=== PATIENT | male | born 1975 | race Caucasian/White ===

== ENCOUNTER 2018-11-29 12:58 | Observation (INO) ==
[2018-11-29 13:40] LABS: Basophils % 0.2 %; Eosinophils % 0.1 %; Hematocrit 45.6 % (37.5-50.1); Hemoglobin 15.8 g/dL (12.9-16.9); Immature Granulocytes % 0.2 % (0-4); Lymphocytes # 1.7 K/mcL (0.6-4.6); Lymphocytes % 12.9 %; Mean Corpuscular HGB Conc 34.6 g/dL (31.6-35.5); Mean Corpuscular Hemoglobin 32.6 pg (28.0-33.3); Mean Corpuscular Volume 94.2 fL (83.0-100.0); Mean Platelet Volume 10.8 fL (9.4-12.4); Monocytes # 0.4 K/mcL (0.0-1.3); Monocytes % 3.3 %; Neutrophils # 10.7 K/mcL (1.6-8.9); Platelet Count 326 K/mcL (140-400); Red Blood Count 4.84 M/mcL (4.19-5.50); Red Cell Distribution Width 12.9 % (11.5-14.5); Segmented Neutrophils % 83.3 %; White Blood Count 12.9 K/mcL (4.3-11.1)
[2018-11-29 14:03] LABS: Alanine Aminotransferase 16 Units/L (7-52); Albumin 4.2 g/dL (3.5-5.7); Albumin/Globulin Ratio 1.7 (1.1-2.2); Alkaline Phosphatase 60 Units/L (34-104); Amylase 72 Units/L (29-103); Aspartate Amino Transferase 17 Units/L (13-39); BUN/Creatinine Ratio 30 (6-26); Bilirubin,Direct 0.1 mg/dL (0.0-0.2); Bilirubin,Indirect 0.8 mg/dL (0.0-1.2); Bilirubin,Total 0.9 mg/dL (0.3-1.0); Blood Urea Nitrogen 20 mg/dL (6-20); Calcium 9.6 mg/dL (8.6-10.3); Carbon Dioxide 31 mEq/L (23-29); Chloride 99 mEq/L (98-107); Globulin 2.5 g/dL (2.4-3.5); Glucose 121 mg/dL (70-105); Lipase 24 Units/L (11-82); Osmolality,Calculated 292 (280-300); Potassium 4.1 mEq/L (3.5-5.1); Sodium 139 mEq/L (136-145); Total Protein 6.7 g/dL (6.4-8.9); eGFR For African Americans > 60 (> 60); eGFR For Non-African Americans > 60 (> 60)
[2018-11-29] MEDS ORDERED: Ketorolac 15 MG/ML VIAL IVP ONE (14:48)
[2018-11-29] MEDS ORDERED: Ondansetron ODT 4 MG TAB.RAPDIS SL ONE (14:48)
--- NOTE | 2018-11-29 15:04 | Emergency Department Note ---
Disposition Clinical Impression: Hematemesis, Abnormal CT scan, Abnormal urinalysis, UGI bleed Abdominal pain Qualifiers: Abdominal location: generalized Qualified Code(s): R10.84 - Generalized abdominal pain Disposition: Admitted As Inpatient Referrals: NONE,PCP [Primary Care Provider] - Forms: ED Satisfaction Letter, Work/School Release Time of Disposition: 17:48 General Adult HPI - General Chief complaint: ED Abdominal Pain Stated complaint: Flank Pain/Possible kidney stone Time Seen by Provider: 11/29/18 14:05 Source: patient Limitations: no limitations Nursing Notes Reviewed: Yes Vital Signs Reviewed: Yes - History of Present Illness HPI Narrative: Mr. Buckner is a 43 yo M with PMH of tobacco use, presenting emergency department with 6 day history of LUQ pain radiating around the left flank. Associated symptoms include chills, nausea, vomiting with hematemesis, constipation, and burning with urination. His pain is worse with movement. Pain improves when standing. Reports the hematemesis has been a very small amount of bleeding. He has not been eating or drinking well. He had a bowel movement today, but states it was very small and hard. He has a history of drinking 12-14 energy drinks per day, but has not been able to since his pain started. He denies fevers, vision changes, lightheadedness, chest pain, dyspnea, diarrhea, hematochezia, melena, hematuria, or joint pain or swelling. Pain Scale: 10 - Related Data Home Medications Medication Instructions Recorded Confirmed Ibuprofen [Motrin] 200 mg PO Q4HR 03/13/18 03/13/18 Previous Rx's Medication Instructions Recorded Cyclobenzaprine [Flexeril] 10 mg PO HS PRN #10 tablet 03/13/18 Lidocaine Patch [Lidoderm 5% patch] 1 each TP DAILY #10 adh..patch 03/19/18 Acetaminophen [Tylenol] 500 mg PO Q6HR #16 tablet 09/17/18 Cyclobenzaprine [Flexeril] 10 mg PO BID #6 tablet 09/17/18 Ibuprofen [Motrin] 600 mg PO Q6HR PRN #16 tab 09/17/18 Lidocaine Patch [Lidoderm 5% patch] 1 each TP DAILY #4 adh..patch 09/17/18 Ibuprofen [Motrin] 600 mg PO Q8HR PRN #20 tab 11/23/18 Allergies Allergy/AdvReac Type Severity Reaction Status Date / Time Penicillins Allergy Swelling Verified 09/17/18 07:14 of Lip/Tongue/Throat tramadol [From Ultram] AdvReac Chest Pain Verified 09/17/18 07:14 Review of Systems: Admits to LUQ pain, chills, nausea, vomiting with mild amount of hematemesis, constipation, and burning with urination. Denies fevers, vision changes, lightheadedness, chest pain, dyspnea, diarrhea, hematochezia, melena, hematuria, or joint pain or swelling. Past Medical History - Past Medical History Medical history: Reports: no medical history Surgical history: Reports: non-contributory Psychiatric history: Reports: bipolar, depression - Social History Smoking Status: Current every day smoker Smokeless Tobacco Status: No Alcohol use: Reports: none Drug use: Reports: none Physical Exam GEN: No acute distress, A&O3 HEAD: Atraumatic, normocephalic EYES: Pupils symmetric, sclera white, conjunctiva pink MOUTH: no lesions or petechiae HEART: RRR, normal S1 and S2, no murmurs LUNGS: Clear to auscultation bilaterally, no wheezes, rhonchi, or crackles ABD: Soft, moderate LUQ/LLQ/suprapubic tenderness, nondistended, + guarding, no rigidity, + left CVA tenderness EXT: No edema noted, pulses 2/4 NEURO: No focal deficits, strength equal and symmetric in all extremities, cooperative with exam - General Limitations: no limitations General appearance: alert - Head Head exam: atraumatic, normocephalic, normal inspection - Eye Eye exam: Present: normal appearance, PERRL, EOMI - ENT ENT exam: normal exam, normal oropharynx, mucous membranes moist - Neck Neck exam: Present: normal inspection, full ROM, trachea midline - Chest Chest inspection: Present: normal inspection, symmetric chest wall rise. Absent: tenderness - Respiratory Respiratory exam: Present: normal lung sounds bilaterally. Absent: respiratory distress, prolonged expiratory phase - Cardiovascular Cardiovascular exam: Present: regular rate, normal rhythm, normal heart sounds - Abdominal Exam Abdominal exam: Present: soft, tenderness, normal bowel sounds. Absent: distention, guarding, rebound, rigidity, trauma Abdominal tenderness: Present: RLQ, LLQ, moderate - Extremities Exam Extremities exam: Present: normal inspection, full ROM, normal capillary refill. Absent: tenderness, pedal edema, joint swelling, calf tenderness - Expanded Lower Extremity Exam Neurovascular/Tendon exam: Present: normal capillary refill. Absent: motor deficit, sensory deficit, tendon deficit, extremity cold to touch, pallor - Back Exam Back exam: Present: normal inspection, full ROM, CVA tenderness (L), paraspinal tenderness. Absent: tenderness, CVA tenderness (R), vertebral tenderness - Neurological Exam Neurological exam: Present: alert, oriented X3, CN II-XII intact. Absent: motor sensory deficit - Psychiatric Psychiatric exam: Present: normal affect, normal mood - Skin Skin exam: Present: warm, dry, intact, normal color Course Vital Signs Temperature 98.2 F 11/29/18 13:03 Pulse Rate 69 11/29/18 13:03 Respiratory Rate 18 11/29/18 13:03 Blood Pressure 132/86 11/29/18 13:03 O2 Sat by Pulse Oximetry 100 11/29/18 13:03 Temperature 98.2 F 11/29/18 13:03 Pulse Rate 80 11/29/18 16:38 Respiratory Rate 16 11/29/18 16:38 Blood Pressure 138/86 11/29/18 16:38 O2 Sat by Pulse Oximetry 100 11/29/18 16:38 Oxygen Delivery Oxygen Delivery Room Air Medical Decision Making - MDM Narrative Medical decision making narrative: Nontoxic, well-appearing, afebrile 43-year-old male with left-sided abdominal pain and hematemesis. Patient was given toradol, dulaudid, zofran, and pantoprazole. Patient does have any hx of liver dysfunction. Etiology of his pain may be related to PUD. Also a consideration if renal stone. Labs show mild leukocytosis of 12.9. Urinalysis is turbid, but without any nitrates, leukoesterase, or blood. Otherwise laboratory workup is unremarkable. CT abdomen and pelvis for further evaluation is pending at this time. Disposition is pending at this time. Further care will be conducted by attending Dr. Miner, please see his documentation for final treatment and disposition. *Dr. Miner: The patient was initially evaluated in the emergency department by the resident who noted a concerning history of flank pain and potential renal colic then ordered Toradol. The patient initially gave a confusing history regarding the nature of his emesis and pain. On review of the patient's triage note, there was a description of vomiting of blood, then the patient denied. When I questmarley tova the patient specifically he reported he had bright red blood per vomitus. He is not anticoagulated. He denies any black or bloody stool. He reports he used to drink significant amounts of alcohol in the past. There is no history of abdominal trauma. His clinical examination reveals lower abdominal pain and back pain to palpation. He states he has chronic back pain and has had have injections for chronic back problems. There is no evidence of acute neuropathy or complaints of acute weakness or numbness in the legs. There is no history of abdominal aortic aneurysm. The patient denies chest pain shortness of breath or injury. No history of syncope. Laboratory studies reviewed, urinalysis noted to be abnormal. CT scan demonstrates changes suggestive of gastric abnormality. Based on the patient's reported bloody emesis, elevated BUN, and CT findings suspicious for gastric pathology, Protonix was ordered IV as well as a Protonix drip. The patient was treated with Dilaudid and Zofran which seemed to help, he requested a repeat dose which was ordered. The patient declines rectal examination. He denies blackened stool. The patient appears to have an element of gastritis with upper GI bleeding. Based on reported hematemesis, probable upper GI bleed, and CT findings suggestive of same, I thought it would be appropriate to admit the patient to the hospital. I discussed the case with the hospitalist on-call who has accepted the patient to their care. A second CBC lal s been ordered. - Lab Data Lab results reviewed: Yes I reviewed the patient's lab results. Result diagrams: 11/29/18 13:21 11/29/18 13:21 Lab Results 11/29/18 11/29/18 11/29/18 Range/Units 13:21 13:21 13:21 WBC 12.9 H (4.3-11.1) K/mcL RBC 4.84 (4.19-5.50) M/mcL Hgb 15.8 (12.9-16.9) g/dL Hct 45.6 (37.5-50.1) % MCV 94.2 (83.0-100.0) fL MCH 32.6 (28.0-33.3) pg MCHC 34.6 (31.6-35.5) g/dL RDW 12.9 (11.5-14.5) % Plt Count 326 (140-400) K/mcL MPV 10.8 (9.4-12.4) fL Immature Gran % 0.2 (0-4) % Seg Neutrophils % 83.3 % Lymphocytes % 12.9 % Monocytes % 3.3 % Eosinophils % 0.1 % Basophils % 0.2 % Neutrophils # 10.7 H (1.6-8.9) K/mcL Lymphocytes # 1.7 (0.6-4.6) K/mcL Monocytes # 0.4 (0.0-1.3) K/mcL Eosinophils # 0.0 (0.0-0.6) K/mcL Basophils # 0.0 (0.0-0.2) K/mcL PT 11.1 (9.4-12.1) Seconds INR 1.0 APTT 34.5 (26.0-36.0) Seconds Sodium 139 (136-145) mEq/L Potassium 4.1 (3.5-5.1) mEq/L Chloride 99 (98-107) mEq/L Carbon Dioxide 31 H (23-29) mEq/L BUN 20 (6-20) mg/dL Creatinine 0.67 L (0.70-1.30) mg/dL Est GFR ( Amer) > 60 (> 60) Est GFR (Non-Af Amer) > 60 (> 60) BUN/Creatinine Ratio 30 H (6-26) Glucose 121 H (70-105) mg/dL Calculated Osmolality 292 (280-300) Calcium 9.6 (8.6-10.3) mg/dL Total Bilirubin 0.9 (0.3-1.0) mg/dL Direct Bilirubin 0.1 (0.0-0.2) mg/dL Indirect Bilirubin 0.8 (0.0-1.2) mg/dL AST 17 (13-39) Units/L ALT 16 (7-52) Units/L Alkaline Phosphatase 60 (34-104) Units/L Serum Total Protein 6.7 (6.4-8.9) g/dL Albumin 4.2 (3.5-5.7) g/dL Globulin 2.5 (2.4-3.5) g/dL Albumin/Globulin Ratio 1.7 (1.1-2.2) Amylase 72 (29-103) Units/L Lipase 24 (11-82) Units/L Urine Color (Yellow) Urine Clarity (Clear) Urine pH (5.0-8.0) pH Units Ur Specific [place] (1.010-1.025) Urine Protein (Neg-Trace) mg/dL Urine Glucose (UA) (Normal) mg/dL Urine Ketones (Negative) mg/dL Urine Blood (Negative) Urine Nitrite (Negative) Urine Bilirubin (Negative) Urine Urobilinogen (Normal) mg/dL Ur Leukocyte Esterase (Negative) Urine Microscopic RBC (0-3) per hpf Urine Microscopic WBC (0-3) per hpf Ur Squamous Epith Cells (None-Few) per lpf Amorphous Sediment (Few) Urine Bacteria (None-Few) per hpf Hyaline Casts (None-Few) per lpf Ur Culture Indicated? (NO) 11/29/18 Range/Units 15:46 WBC (4.3-11.1) K/mcL RBC (4.19-5.50) M/mcL Hgb (12.9-16.9) g/dL Hct (37.5-50.1) % MCV (83.0-100.0) fL MCH (28.0-33.3) pg MCHC (31.6-35.5) g/dL RDW (11.5-14.5) % Plt Count (140-400) K/mcL MPV (9.4-12.4) fL Immature Gran % (0-4) % Seg Neutrophils % % Lymphocytes % % Monocytes % % Eosinophils % % Basophils % % Neutrophils # (1.6-8.9) K/mcL Lymphocytes # (0.6-4.6) K/mcL Monocytes # (0.0-1.3) K/mcL Eosinophils # (0.0-0.6) K/mcL Basophils # (0.0-0.2) K/mcL PT (9.4-12.1) Seconds INR APTT (26.0-36.0) Seconds Sodium (136-145) mEq/L Potassium (3.5-5.1) mEq/L Chloride (98-107) mEq/L Carbon Dioxide (23-29) mEq/L BUN (6-20) mg/dL Creatinine (0.70-1.30) mg/dL Est GFR ( Amer) (> 60) Est GFR (Non-Af Amer) (> 60) BUN/Creatinine Ratio (6-26) Glucose (70-105) mg/dL Calculated Osmolality (280-300) Calcium (8.6-10.3) mg/dL Total Bilirubin (0.3-1.0) mg/dL Direct Bilirubin (0.0-0.2) mg/dL Indirect Bilirubin (0.0-1.2) mg/dL AST (13-39) Units/L ALT (7-52) Units/L Alkaline Phosphatase (34-104) Units/L Serum Total Protein (6.4-8.9) g/dL Albumin (3.5-5.7) g/dL Globulin (2.4-3.5) g/dL Albumin/Globulin Ratio (1.1-2.2) Amylase (29-103) Units/L Lipase (11-82) Units/L Urine Color Yellow (Yellow) Urine Clarity Turbid A (Clear) Urine pH 8.5 H (5.0-8.0) pH Units Ur Specific [place] 1.025 (1.010-1.025) Urine Protein 30 H (Neg-Trace) mg/dL Urine Glucose (UA) Normal (Normal) mg/dL Urine Ketones Negative (Negative) mg/dL Urine Blood Negative (Negative) Urine Nitrite Negative (Negative) Urine Bilirubin Negative (Negative) Urine Urobilinogen Normal (Normal) mg/dL Ur Leukocyte Esterase Negative (Negative) Urine Microscopic RBC 0-3 (0-3) per hpf Urine Microscopic WBC 0-3 (0-3) per hpf Ur Squamous Epith Cells Many H (None-Few) per lpf Amorphous Sediment Few (Few) Urine Bacteria Moderate H (None-Few) per hpf Hyaline Casts None Seen (None-Few) per lpf Ur Culture Indicated? YES A (NO)
[2018-11-29 15:22] LABS: Activated Partial Thrombo Time 34.5 Seconds (26.0-36.0)
[2018-11-29 15:25] LABS: Prothrombin Time 11.1 Seconds (9.4-12.1)
[2018-11-29] MEDS ORDERED: Pantoprazole 80 MG in 0.9 % Sodium Chloride 50 ML IVPB ONE (16:02)
[2018-11-29] MEDS ORDERED: Ondansetron 4 MG/2 ML VIAL IVP ONE ×2 (16:03→19:16)
[2018-11-29] MEDS ORDERED: *HR* HYDROmorphone (PF) 1 MG/ML SYRINGE IVP ONE ×2 (16:03→19:16)
[2018-11-29 16:10] LABS: Bilirubin,Urine Negative (Negative); Blood,Urine Negative (Negative); Clarity,Urine Turbid (Clear); Color,Urine Yellow (Yellow); Glucose,Urine (UA) Normal (Normal); Ketones,Urine Negative (Negative); Leukocyte Esterase,Urine Negative (Negative); Nitrite,Urine Negative (Negative); PH,Urine 8.5 pH Units (5.0-8.0); Protein,Urine 30 mg/dL (Neg-Trace); Specific Gravity,Urine 1.025 (1.010-1.025); Urobilinogen,Urine Normal (Normal)
[2018-11-29 16:23] LABS: Hyaline Casts,Urine None Seen per lpf (None-Few); RBC,Urine 0-3 per hpf (0-3); Squamous Epithelial Cell,Urine Many per lpf (None-Few); WBC,Urine 0-3 per hpf (0-3)
[2018-11-29] MEDS ORDERED: Isovue-370 500 ML BOTTLE IVP ONE (16:38)
[2018-11-29 16:43] LABS: Amorphous Sediment,Urine Few (Few); Bacteria,Urine Moderate per hpf (None-Few)
[2018-11-29] MEDS ORDERED: Naloxone 0.4 MG/ML INJ IVP PRN (22:31)
[2018-11-29] MEDS ORDERED: Ondansetron 4 MG/2 ML VIAL IVP PRN (22:31)
[2018-11-29] MEDS: Pantoprazole 40 MG in 0.9 % Sodium Chloride Mini Bag 100 ML IVC SCH (22:47)
--- NOTE | 2018-11-29 22:55 | Internal Med History&Physical ---
Date of Encounter: 11/29/18 Time of Encounter: 22:00 Internal Medicine - H&P: HPI Chief complaint: Hematemesis Admitted From: Emergency Dept Plans for Post Hospital Care: Home History of present illness: Mr. Buckner is a 43 year old male Patient presented to the emergency department after experiencing several days of left upper quadrant abdominal pain as well as hematemesis. He states that he is unable to keep anything down, and when he would eat he would vomit it back up. He has noted blood in his vomit. He states that he also has a heavy energy drink usage, drinking 16 sixteen ounce energy drinks daily which he has done for over 2 years. He quit drinking these around Wednesday of last week after he developed the vomiting. He has never had pain like this before. Emergency department patient initial vital signs were within normal limits CBC notable for white count of 12.9, hemoglobin of 15.8 and platelets 326. BMP unremarkable aside from mildly elevated glucose of 121. Urinalysis: Urine pH 8.5, 30 protein with moderate urine bacteria. CT abdomen and pelvis IMPRESSION: Prominence of the gastric mucosal folds and wall thickening especially of the fundus, body of the stomach that may represent gastritis. Recommend endoscopic correlation given symptoms of abdominal pain and hematemesis. No bowel obstruction. Patient was given IV pain medicine, IV Zofran and started on a pantoprazole IV drip. He is admitted to the hospital for further management. Upon my evaluation, patient is threatening to leave the hospital AGAINST MEDICAL ADVICE. He states that he is hungry and is calling looking for a ride home. I discussed with him the risks of leaving, and patient stated that he would like something to eat and if he cannot eat he wants something to help with his pain. I stated that we would give him something to manage his pain however I would not give him anything to eat or drink. Patient agreed to stay if we can get his pain under control. He declines any kind of rectal examination and would not agree to colonoscopy if it were required. I informed him that he may require an upper endoscopy, and GI consult in the morning. Patient also confirmed his history of his heavy energy drink use. He is also a heavy smoker. He denies IV drug use but smokes marijuana. He has history of alcohol use in the past but has not had any alcohol to drink in over 20 years. He states that he would not want to be resuscitated nor intubated if required. He denies suicidal ideation. Denies significant past family history, but did not have much details to provide. Past Med Surg Social Fam HX - Past Medical History Medical history: no medical history Additional medical history: back pain Psychiatric history: bipolar, depression - Past Surgical History Surgical History: non-contributory - Social History Smoking Status: Current every day smoker Smokeless Tobacco Status: No Alcohol use: none Drug use: none Internal Medicine - H&P: Meds Ibuprofen [Motrin] 600 mg PO Q8HR PRN #20 tab 11/23/18 [Rx] Allergy/AdvReac Type Severity Reaction Status Date / Time Penicillins Allergy Swelling Verified 11/29/18 21:41 of Lip/Tongue/Throat tramadol [From Ultram] AdvReac Chest Pain Verified 11/29/18 21:41 All Systems PM: A 10-system review of systems was performed and is negative for pertinent findings except as documented above in the HPI. - Constitutional Vitals: Temp Pulse Resp BP Pulse Ox 98.0 F 64 15 138/91 99 11/29/18 20:48 11/29/18 20:48 11/29/18 20:48 11/29/18 20:48 11/29/18 20:48 General appearance: Present: cooperative, mild distress, A&O X 3, answers questions appropriately. Absent: pleasant Exam: Patient initially very unpleasant, requesting to leave. Discussed with him that we would work to control his pain, and he agreed to stay. - Head Head exam: Present: normal inspection - Eye Eye exam: Present: EOMI, normal appearance - Respiratory Respiratory exam: Present: decreased breath sounds, CTAB. Absent: rales, respiratory distress, rhonchi, wheezes - Cardiovascular Cardiovascular exam: Present: RRR. Absent: diastolic murmur, systolic murmur - GI/Abdominal GI/Abdominal exam: Present: guarding, normal bowel sounds, tenderness Additional comments: Tender in LUQ with palpation - Extremities Exam Extremities exam: Present: warm, radial pulses palpable and symmetrical. Absent: calf tenderness, pedal edema, tenderness - Neurological Exam Neurological exam: Present: no focal deficits, strengths equal and symetr throughout. Absent: motor sensory deficit, facial droop, speech deficit - Skin Skin exam: Present: dry, normal color, warm Internal Med - H&P Results - Labs CBC & Chem 7: 11/29/18 13:21 11/29/18 13:21 Labs: Short CBC 11/29/18 Range/Units 13:21 WBC 12.9 H (4.3-11.1) K/mcL Hgb 15.8 (12.9-16.9) g/dL Hct 45.6 (37.5-50.1) % Plt Count 326 (140-400) K/mcL Neutrophils # 10.7 H (1.6-8.9) K/mcL BMP 11/29/18 13:21 Sodium 139 Potassium 4.1 Chloride 99 Carbon Dioxide 31 H BUN 20 Creatinine 0.67 L Glucose 121 H Calcium 9.6 Liver Function 11/29/18 Range/Units 13:21 Total Bilirubin 0.9 (0.3-1.0) mg/dL Direct Bilirubin 0.1 (0.0-0.2) mg/dL AST 17 (13-39) Units/L ALT 16 (7-52) Units/L Alkaline Phosphatase 60 (34-104) Units/L Albumin 4.2 (3.5-5.7) g/dL Urine 11/29/18 Range/Units 15:46 Urine Color Yellow (Yellow) Urine Clarity Turbid A (Clear) Urine pH 8.5 H (5.0-8.0) pH Units Ur Specific [place] 1.025 (1.010-1.025) Urine Protein 30 H (Neg-Trace) mg/dL Urine Glucose (UA) Normal (Normal) mg/dL - Impressions ITS Impressions Abdomen/Pelvis CT 11/29/18 16:38 IMPRESSION: Prominence of the gastric mucosal folds and wall thickening especially of the fundus, body of the stomach that may represent gastritis. Recommend endoscopic correlation given symptoms of abdominal pain and hematemesis. No bowel obstruction. D/ : / 11/29/2018 19:21:16 Marcelo Loyd MD / [place] Interpreting Provider: Marcelo Loyd MD - Assessment and Plan (1) Hematemesis Current Visit: Yes Status: Acute Assessment and plan: Patient has had bloody vomitus since Wednesday. Refuses rectal exam. Has not had vomiting or bowel movement since his arrival to the ER. Patient also admits to taking 3 ibuprofens daily as well which could play a role in his gastritis. Check stool occult blood GI consult in the morning Nothing by mouth IV Protonix Continue to monitor Qualifiers: Nausea presence: with nausea Qualified Code(s): K92.0 - Hematemesis (2) Abdominal pain Current Visit: Yes Status: Acute Assessment and plan: CT shows likely gastritis in the body of the stomach as well as wall thickening in the fundus, likely source of his hematemesis. Nothing by mouth IV Protonix GI consult in the morning Pain management as needed Qualifiers: Abdominal location: left upper quadrant Qualified Code(s): R10.12 - Left upper quadrant pain (3) Use of energy drinks Current Visit: Yes Status: Acute Assessment and plan: Heavy energy drink use, 16 sixteen ounce drinks daily for over 2 years. Patient denies palpitations and tremors. Continue to monitor Cardiac telemetry (4) Nicotine dependence Current Visit: Yes Status: Acute Assessment and plan: Heavy cigarette use, 2 pack per day. Nicotine patch Qualifiers: Nicotine product type: cigarettes Substance use status: uncomplicated Qualified Code(s): F17.210 - Nicotine dependence, cigarettes, uncomplicated (5) DVT prophylaxis Current Visit: Yes Status: Acute Assessment and plan: SCDs - Time Spent With Patient Total time spent is greater than 50% in coordination of care (as documented) at patient's floor/unit and/or counseling patient: Greater than 35 minutes
[2018-11-29] MEDS: 0.9 % Sodium Chloride 1,000 ML IVC SCH (23:22)
[2018-11-30] MEDS: Pantoprazole 40 MG in 0.9 % Sodium Chloride Mini Bag 100 ML IVC SCH ×4 (03:55→20:50)
[2018-11-30] MEDS: Nicotine 21 MG PATCH.TD24 TD SCH (04:02)
[2018-11-30] MEDS: 0.9 % Sodium Chloride 1,000 ML IVC SCH (06:42)
[2018-11-30] MEDS ORDERED: *HR* Midazolam HCl 2 MG/2 ML VIAL ONE ×2 (07:37→07:38)
[2018-11-30] MEDS ORDERED: Lidocaine -MPF 2% 2 ML VIAL ONE (07:39)
[2018-11-30] MEDS ORDERED: Propofol 500 MG/50 ML INFUS..BTL ONE (07:39)
--- NOTE | 2018-11-30 08:39 | Gastroenterology Consult Note ---
Date of Encounter: 11/30/18 Time of Encounter: 08:30 - Assessment and plan (1) Hematemesis Current Visit: Yes Status: Acute Assessment and plan: Patient with the hematemesis and abdominal pain has been taking NSAIDs for his finger pain. Need an EGD to rule out gastritis peptic ulcer disease. We will continue PPI Qualifiers: Nausea presence: with nausea Qualified Code(s): K92.0 - Hematemesis - Time Spent With Patient Total time spent is greater than 50% in coordination of care (as documented) at patient's floor/unit and/or counseling patient: GI History of Present Illness - Data of Consult Requesting Physician: Krystle Ayala - Consult Narrative History of present illness: Mr. Buckner is a 43 year old male everal days of left upper quadrant abdominal pain as well as hematemesis. He states that he is unable to keep anything down, and when he would eat he would vomit it back up. He has noted blood in his vomit. He states that he also has a heavy energy drink usage, drinking 16 sixteen ounce energy drinks daily which he has done for over 2 years. He quit drinking these around Wednesday of last week after he developed the vomiting. He is also complaining of pain in his finger. Patient has been taking NSAID for his finger pain Past Med Surg Social Fam HX - Past Medical History Medical history: IV drug use Additional medical history: Marijuana Psychiatric history: bipolar, depression, schizophrenia - Past Surgical History Surgical History: non-contributory - Social History Smoking Status: Current every day smoker Smokeless Tobacco Status: No Alcohol use: none Drug use: marijuana - Family History Mother Living Status: Age at : 45 Cause of : cancer Father History Unknown: Yes Living Status: Still Living Review of Systems: GI: as per [facility] GENERAL: denies fever, has some chills EYES: denies yellow discoloration ENT: denies pain with swallowing or difficulty swallowing CARDIO: denies chest pain, palpitations RESP: No Shortness of breath with exertion : denies change in color of urine NEURO: denies any weakness HEME: Denies any bruising MS: Pain in his middle finger. DERM: denies rash or itching PSYCH: history of anxiety or depression and bipolar disorder - Constitutional Vitals: Temp Pulse Resp BP Pulse Ox 97.6 F 55 16 122/78 100 09/04/19 07:13 11/30/18 07:13 11/30/18 07:13 11/30/18 07:13 11/30/18 07:13 Exam: CONSTITUTIONAL:alert, no acute distress.HEAD:normocephalic.EYES:no jaundice.NECK:no obvious swelling.HEART:regular rate and rhythm, no murmurs.LUNGS:bilateral good air entry.ABDOMEN:non distended, soft, non tander, no masses pulpable, no organomegaly.RECTAL EXAM:Deferred.EXTREMITIES:no clubbing, cyanosis or edema. 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 Results - Labs CBC & Chem 7: 11/29/18 13:21 11/29/18 13:21 - ABG ABG results: PT/INR, D-dimer PT 11.1 Seconds (9.4-12.1) 11/29/18 13:21 - Impressions Impressions Abdomen/Pelvis CT 11/29/18 16:38 IMPRESSION: Prominence of the gastric mucosal folds and wall thickening especially of the fundus, body of the stomach that may represent gastritis. Recommend endoscopic correlation given symptoms of abdominal pain and hematemesis. No bowel obstruction. D/ /29/2018 19:21:16 Marcelo Loyd MD / [place] Interpreting Provider: Marcelo Loyd MD Consult Discharge Plan - Plan Referrals: NONE,PCP [Primary Care Provider] -
--- NOTE | 2018-11-30 08:45 | Anesthesia Evaluation PreOp ---
Date of Encounter: 11/30/18 Time of Encounter: 08:44 - Past History Planned Operation: EGD Cardiac History: HTN Pulmonary History: Smoker Other Medical History: Other (UPPER GI BLEED, HEMATEMESIS) Alcohol Use: none Drug use: marijuana Medications and Allergies Ibuprofen [Motrin] 600 mg PO Q8HR PRN #20 tab 11/23/18 [Rx] Allergy/AdvReac Type Severity Reaction Status Date / Time Penicillins Allergy Swelling Verified 11/29/18 21:41 of Lip/Tongue/Throat tramadol [From Ultram] AdvReac Chest Pain Verified 11/29/18 21:41 Anesthesia Results - Labs 11/29/18 13:21 11/29/18 13:21 Anesthesia Exam Vital Signs/O2 Sat, Most Current Temp Pulse Resp BP Pulse Ox 97.6 F 55 16 122/78 100 11/30/18 08:34 11/30/18 08:34 11/30/18 08:34 11/30/18 08:34 11/30/18 08:34 Weight: 70 KG NPO (# of Hours): 8 - HEENT Mallampati: II Teeth: Poor dentition - Cardiac Rhythm: Regular - Pulmonary Breath Sounds: bilateral Clear Anesthesia Assess/Plan ASA Score: 3 Anesthetic Plan: MAC Monitoring Plan: Standard Monitors Recovery Plan: Other
[2018-11-30 09:41] LABS: Hematocrit 38.9 % (37.5-50.1); Mean Corpuscular HGB Conc 33.9 g/dL (31.6-35.5); Mean Corpuscular Hemoglobin 32.9 pg (28.0-33.3); Mean Platelet Volume 11.5 fL (9.4-12.4); Platelet Count 260 K/mcL (140-400); Red Blood Count 4.01 M/mcL (4.19-5.50); Red Cell Distribution Width 13.2 % (11.5-14.5); White Blood Count 7.8 K/mcL (4.3-11.1)
[2018-11-30 09:43] LABS: Hemoglobin 13.2 g/dL (12.9-16.9)
[2018-11-30 13:05] LABS: BUN/Creatinine Ratio 27 (6-26); Blood Urea Nitrogen 19 mg/dL (6-20); Carbon Dioxide 29 mEq/L (23-29); Chloride 105 mEq/L (98-107); Cholesterol 138 mg/dL (< 200); Glucose 122 mg/dL (70-105); HDL Cholesterol 32 mg/dL (40-59); Osmolality,Calculated 290 (280-300); Potassium 3.2 mEq/L (3.5-5.1); Sodium 138 mEq/L (136-145); Triglycerides 78 mg/dL (< 150); eGFR For African Americans > 60 (> 60); eGFR For Non-African Americans > 60 (> 60)
[2018-11-30 13:06] LABS: Chol/HDL Ratio 4.3 (0-4.9); LDL Cholesterol,Calculated 90 mg/dL (0-99)
--- NOTE | 2018-11-30 13:14 | Internal Med Progress Note ---
<Krystle Ayala - Last Filed: 11/30/18 15:44> Hospitalist Progress Note - Encounter Date of Encounter: 11/30/18 - Exam Vitals: Temp Pulse Resp BP Pulse Ox 97.9 F 52 15 113/68 99 11/30/18 14:14 11/30/18 14:14 11/30/18 14:14 11/30/18 14:14 11/30/18 14:14 - Assessment and Plan (1) Abdominal pain Current Visit: Yes Status: Acute (2) Hematemesis Current Visit: Yes Status: Acute (3) DVT prophylaxis Current Visit: Yes Status: Acute (4) Nicotine dependence Current Visit: Yes Status: Acute (5) Use of energy drinks Current Visit: Yes Status: Acute - Time Spent with Patient Total time spent is greater than 50% in coordination of care (as documented) at patient's floor/unit and/or counseling patient: Internal Medicine: Result - Labs CBC & Chem 7: 11/30/18 05:25 11/30/18 12:19 Labs: Short CBC 11/30/18 Range/Units 05:25 WBC 7.8 (4.3-11.1) K/mcL Hgb 13.2 D (12.9-16.9) g/dL Hct 38.9 (37.5-50.1) % Plt Count 260 (140-400) K/mcL BMP 11/30/18 12:19 Sodium 138 Potassium 3.2 L Chloride 105 Carbon Dioxide 29 BUN 19 Creatinine 0.70 Glucose 122 H Calcium 8.0 L Urine 11/29/18 Range/Units 15:46 Urine Color Yellow (Yellow) Urine Clarity Turbid A (Clear) Urine pH 8.5 H (5.0-8.0) pH Units Ur Specific [place] 1.025 (1.010-1.025) Urine Protein 30 H (Neg-Trace) mg/dL Urine Glucose (UA) Normal (Normal) mg/dL - ABG Interpretation ABG results: PT/INR, D-dimer PT 11.1 Seconds (9.4-12.1) 11/29/18 13:21 - Impressions Impressions Abdomen/Pelvis CT 11/29/18 16:38 IMPRESSION: Prominence of the gastric mucosal folds and wall thickening especially of the fundus, body of the stomach that may represent gastritis. Recommend endoscopic correlation given symptoms of abdominal pain and hematemesis. No bowel obstruction. D/ / 11/29/2018 19:21:16 Marcelo Loyd MD / [place] Interpreting Provider: Marcelo Loyd MD Finger X-Ray 11/30/18 14:56 IMPRESSION: Soft tissue swelling of the distal 3rd digit without acute osseous abnormality. D/ / Noy Segura MD / Noy Segura MD Interpreting Provider: Noy Segura MD Consult Discharge Plan - Plan Referrals: Shaq Tompkins [Resident] - 12/07/18 3:00 pm (Please arrive 30 minutes early to fill out paperwork. Please bring your photo ID, insurance card and any medications you are on. If you need to cancel, please give a 24 hour notice. Thank you) Prescriptions: Sucralfate [Carafate] 1 gm PO TID 14 Days #420 mls - Attending Attestation I examined this patient and my medical decision-making was reviewed with the Resident Physician Dr Catalan. I agree with the documented findings, disposition and treatment plan as described except to the extent set forth below. Mr Buckner is being observed for hematemesis and abd pain awake, back from egd, cont epigastric pain, but no nausea or emesis. denies fevers, chills, diarrhea, denies any further bleeding. He is noting a swollen painful finger, progressive over two weeks. He thinks he has something lodged under his nail. gen- alert, awake,appears stated age eyes- pupils equal round cv- reg rate and rhythm, normal s1,s2 lungs- ctabl, no wheezing, rhonchi or crackles abd- soft, + tender epigastrium no rigidity, non distended, + bs msk- right third finger distal joint edema and pain to palpation, no skin changes neuro- AAOx3 Epigastric pain 2/2 multiple gastric ulcers- gi following, bx pending, PPI BID + carafate, advance diet, stop home nsaid Right third finger edema/pain- XR reviewed, will consult ortho for further work up/treatment recs Asx bacteruria- ucx pending further dx and plan as noted by resident <Brendon Catalan - Last Filed: 11/30/18 21:35> Hospitalist Progress Note - Encounter Date of Encounter: 11/30/18 Time of Encounter: 13:14 - Subjective Interval History: Mr. Buckner is a 43-year-old male past medical history of alcohol abuse over 20 years/back pain who presented with chief complaint of left upper quadrant abdominal pain with hematemesis. Initial vitals in the ED were normal, patient did not have any anemia on CBC, and serum chemistries were grossly normal. Coags revealed normal PT and INR. Urinalysis showed proteinuria with few white blood cells and some bacteria urine cultures have been sent. Initial stabilization was with protonix 80 mg bolus followed by 8 milligram per hour drip as well as Zofran 4 mg every 8 hours EGD was performed this morning which found multiple nonbleeding ulcers, the largest of which was 12 mm, * biopsies were taken of the lesions and pathological analysis is pending * Patient is continuing on PPIs, we will switch to oral pantoprazole 20 mg twice a day * Patient is also starting Carafate by mouth 3 times daily * No NSAIDs are to be given to patient * Diet is soft , advancing as tolerated with GI okay Patient's main complaint at this time is right middle finger pain. On exam the finger is markedly swollen, pale though warm, exquisitely tender to the touch. Finger has full range of motion and sensation, there is no tenderness along the flexor tendon sheath. Patient remains afebrile with no white count or other systemic signs of infection * Orthopedics was consulted and performed a bedside move all of the nail plate, with subsequent drainage of large volume of foul-smelling purulent material from a paronychial abscess. Further exploration by a the orthopedist revealed healing injury to the volar surface of the finger, and a volar incision was made which drained more purulent material from a concomitant felon * We will start vancomycin and Levaquin for broad-spectrum antibiotics. Zosyn is contraindicated given patient's oropharyngeal edema in reaction to penicillins and past, and unknown history of cephalosporin use. - Exam Vitals: Temp Pulse Resp BP Pulse Ox 98.0 F 50 15 121/73 100 11/30/18 10:49 11/30/18 10:49 11/30/18 10:49 11/30/18 10:49 11/30/18 10:49 Exam: Gen: Awake and alert, no acutedistress, well-nourished, not well kempt Head: Normocephalic, atraumatic Eyes: EOMI, no scleral icterus ENT: Mucous membranes moist, no oropharyngeal erythema CV: S1-S2 present, regular rhythm at a rate of approximately 70, no murmurs rubs or gallops Pulm: CTAB, not tachypneic, no respiratory distress, no increased work of breathing Abd: non-rigid, non-distended, diffuse tenderness to palpation, worst in LUQ and epigastrum, , rebound tenderness with negative heel tap, voluntary guarding. Bowel sounds present EXT: Grossly intact motor strength in all 4 extremities, no lower extremity edema, no distal cyanosis or pallor Skin: Warm, dry, intact, no rashes or lesions noted Neuro: Cranial nerves II-XII grossly intact, no focal nurologic deficits Psych: normal mood and affect, Answers questions with intact judgement, appropriate insight, and linear thought Upper extremity: middle finger in R hand significantly edematous, much larger in diameter than the same finger on the left, edema present from approximately mid shaft at the proximal phalanx to the distal tip of that finger. Finger is pale warm and dry to touch. Tender to palpation, difficult to assess for fluctuance given severity of tenderness. Nail appears dark. No tenderness to palpation along the flexor sheath. Of note the pointer finger on the same hand appears shortened secondary to prior trauma, patient appears to have multiple healed fractures and wounds from trauma to the hands with residual deformity secondary to his occupation - Assessment and Plan (1) Gastric ulcer Current Visit: Yes Status: Acute Assessment and Plan: Multiple gastric ulcers diagnosed today on EGD Patient denies any ongoing hematemesis * We will continue to monitor CBCs serially * Switch from Protonix drip to by mouth Protonix 20 mg BID * Carafate by mouth TID * NO NSAIDs (2) Closed fracture of finger of right hand Current Visit: No Status: Acute (3) Abdominal pain Current Visit: Yes Status: Acute (4) Hematemesis Current Visit: Yes Status: Resolved (5) Nicotine dependence Current Visit: Yes Status: Acute - Time Spent with Patient Total time spent is greater than 50% in coordination of care (as documented) at patient's floor/unit and/or counseling patient: Internal Medicine: Result - Labs CBC & Chem 7: 11/30/18 05:25 11/30/18 12:19 Labs: Short CBC 11/29/18 11/30/18 Range/Units 13:21 05:25 WBC 12.9 H 7.8 (4.3-11.1) K/mcL Hgb 15.8 13.2 D (12.9-16.9) g/dL Hct 45.6 38.9 (37.5-50.1) % Plt Count 326 260 (140-400) K/mcL Neutrophils # 10.7 H (1.6-8.9) K/mcL BMP 11/29/18 11/30/18 13:21 12:19 Sodium 139 138 Potassium 4.1 3.2 L Chloride 99 105 Carbon Dioxide 31 H 29 BUN 20 19 Creatinine 0.67 L 0.70 Glucose 121 H 122 H Calcium 9.6 8.0 L Liver Function 11/29/18 Range/Units 13:21 Total Bilirubin 0.9 (0.3-1.0) mg/dL Direct Bilirubin 0.1 (0.0-0.2) mg/dL AST 17 (13-39) Units/L ALT 16 (7-52) Units/L Alkaline Phosphatase 60 (34-104) Units/L Albumin 4.2 (3.5-5.7) g/dL Urine 11/29/18 Range/Units 15:46 Urine Color Yellow (Yellow) Urine Clarity Turbid A (Clear) Urine pH 8.5 H (5.0-8.0) pH Units Ur Specific [place] 1.025 (1.010-1.025) Urine Protein 30 H (Neg-Trace) mg/dL Urine Glucose (UA) Normal (Normal) mg/dL - ABG Interpretation ABG results: PT/INR, D-dimer PT 11.1 Seconds (9.4-12.1) 11/29/18 13:21 - Impressions Impressions Abdomen/Pelvis CT 11/29/18 16:38 IMPRESSION: Prominence of the gastric mucosal folds and wall thickening especially of the fundus, body of the stomach that may represent gastritis. Recommend endoscopic correlation given symptoms of abdominal pain and hematemesis. No bowel obstruction. D/ / 11/29/2018 19:21:16 Marcelo Loyd MD / [place] Interpreting Provider: Marcelo Loyd MD ____ <Krystle Ayala M - Last Filed: 11/30/18 15:44> (1) Abdominal pain Qualifiers: Abdominal location: left upper quadrant Qualified Code(s): R10.12 - Left upper quadrant pain (2) Hematemesis Qualifiers: Nausea presence: with nausea Qualified Code(s): K92.0 - Hematemesis (4) Nicotine dependence Qualifiers: Nicotine product type: cigarettes Substance use status: uncomplicated Qualified Code(s): F17.210 - Nicotine dependence, cigarettes, uncomplicated <Brendon Catalan S - Last Filed: 11/30/18 21:35> (2) Closed fracture of finger of right hand Qualifiers: Encounter type: initial encounter Finger: middle finger Phalanx: distal Fracture alignment: nondisplaced Qualified Code(s): S62.662A - Nondisplaced fracture of distal phalanx of right middle finger, initial encounter for closed fracture (3) Abdominal pain Qualifiers: Abdominal location: left upper quadrant Qualified Code(s): R10.12 - Left upper quadrant pain (4) Hematemesis Qualifiers: Nausea presence: with nausea Qualified Code(s): K92.0 - Hematemesis (5) Nicotine dependence Qualifiers: Nicotine product type: cigarettes Substance use status: uncomplicated Qualified Code(s): F17.210 - Nicotine dependence, cigarettes, uncomplicated
[2018-11-30] MEDS ORDERED: Lidocaine -MPF 1% 5 ML AMPUL INFILT ONE (14:46)
[2018-11-30] MEDS ORDERED: Lidocaine/EPI 1:100k 1% 20 ML VIAL INFILT ONE (14:53)
[2018-11-30] MEDS ORDERED: Lidocaine/EPI 1:100k 1% 30 ML VIAL INFILT ONE (15:00)
[2018-11-30] MEDS ORDERED: Lidocaine/EPI 1:100k 1% 50 ML VIAL INFILT ONE (15:15)
--- NOTE | 2018-11-30 16:07 | Orthopedic Consult Note ---
Date of Encounter: 11/30/18 Time of Encounter: 16:04 Assessment and Plan (1) Finger infection Current Visit: Yes Status: Acute I did have a long discussion with the patient regarding the diagnosis. He does have a right long finger infection under the nail plate. My recommendation is for bedside I&D with nail plate removal. After informed consent was obtained I did set up a sterile field about the right long finger and anesthetized it with 5 mL 1% lidocaine with epinephrine. After the medication took effect I did remove the nail plate which decompressed copious purulence from underneath. It was foul smelling. This was cultured for aerobic and anaerobic organisms. Cultures were given to the nurse to take to the lab. The nailbed was copiously irrigated. There was a small puncture wound at the junction between the nailbed and the hyponychium which I did open with a 15 blade and extended this volarly into the pulp to decompress any developing felon. After spreading to the septae there is no purulence in this area. The wounds were copiously irrigated and quarter inch iodoform packing was placed in the pulp. I did place a sterile d ressing over the wound. I did notify Dr. Moore of the hospitalist service will begin broad-spectrum antibiotics. My recommendation is local daily wound care with dressing changes and soapy soaks. I will follow clinically well in the hospital though I anticipate being able to discharge him on an oral antibiotic in the next 24 hours or so depending on clinical course of this infection. I have reviewed each of the pertinent components of this chart and any other pertinent medical component(s) including but not limited to pertinent application of the chief complaint, history of present illness, current medication, medical history, allergies, family history, medical history, surgical history, social history, review of systems, vital signs, and any other portion of the pertinent patient medical record directly or indirectly involved with this patient care that is pertinent based on my medical decision process. DAGAMR Herrera History of Present Illness HPI: Mr. Buckner is a 43 year old male currently admitted to the hospitalist for GI complaints. He sustained incidentally an injury to the right long fingertip about a week ago and was referred to [facility] for possibly a nondisplaced fracture of the right long finger distal phalanx. Since that time he has developed worsening pain and swelling to the tip of the right long finger underneath the nail. 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 He has been soaking the right long fingertip ever since. The pain is sharp and achy and focal to the right long finger nail plate at the very tip and worse with any movement of the digit. No relieving factors. He complains of alterations in sensation at the tip of the long finger. No other associated signs or symptoms or modifying factors. Past Med Surg Social Fam HX - Past Medical History Medical history: IV drug use Additional medical history: Marijuana Psychiatric history: bipolar, depression, schizophrenia - Past Surgical History Surgical History: non-contributory - Social History Smoking Status: Current every day smoker Smokeless Tobacco Status: No Alcohol use: none Drug use: marijuana - Family History Mother Living Status: Age at : 45 Cause of : cancer Father History Unknown: Yes Living Status: Still Living Medications and Allergies Ibuprofen [Motrin] 600 mg PO Q8HR PRN #20 tab 11/23/18 [Rx] Sucralfate [Carafate] 1 gm PO TID 14 Days #420 mls 11/30/18 [Rx] Allergy/AdvReac Type Severity Reaction Status Date / Time Penicillins Allergy Swelling Verified 11/29/18 21:41 of Lip/Tongue/Throat tramadol [From Ultram] AdvReac Chest Pain Verified 11/29/18 21:41 All Systems Reviewed: Constitutional -The patient denies any fevers, chills, or feelings of illness Neurologic -The patient denies any numbness, tingling, or burning pains Physical Exam - Constitutional Vitals: Temp Pulse Resp BP Pulse Ox 97.9 F 52 15 113/68 99 11/30/18 14:14 11/30/18 14:14 11/30/18 14:14 11/30/18 14:14 11/30/18 14:14 CONSTITUTIONAL -Vitals reviewed -The patient is well developed, well nourished, well groomed PSYCHIATRIC -Fully alert and oriented -Pleasant mood RIGHT UPPER EXTREMITY Inspection shows that the right long fingertip is swollen with purulence underneath the nail plate. There does appear to be a small entry wound of possibly a foreign body at the junction between the nail plate and hyponychium. Generalized swelling and tenderness over the pulp of the fingertip. No significant tenderness over the paronychial tissues or eponychial fold. No other tenderness noted throughout. No significant redness to the long fingertip. No other lesions noted. The patient can actively flex and extend all digits, extend the thumb, cross the index and long fingers, make an okay sign, and oppose the thumb. The fingertips are all grossly sensate and well- perfused, and the radial artery pulse is 2+. Diagnostic Imaging: I did personally review and interpret x-rays of the right long finger from a week ago and today show no fractures or dislocations or bony resorption. Results - Labs Result Diagrams: 11/30/18 05:25 11/30/18 12:19 Labs: Abnormal lab results WBC 12.9 K/mcL (4.3-11.1) H 11/29/18 13:21 RBC 4.01 M/mcL (4.19-5.50) L 11/30/18 05:25 Neutrophils # 10.7 K/mcL (1.6-8.9) H 11/29/18 13:21 Potassium 3.2 mEq/L (3.5-5.1) L 11/30/18 12:19 Carbon Dioxide 31 mEq/L (23-29) H 11/29/18 13:21 Creatinine 0.67 mg/dL (0.70-1.30) L 11/29/18 13:21 BUN/Creatinine Ratio 27 (6-26) H 11/30/18 12:19 Glucose 122 mg/dL (70-105) H 11/30/18 12:19 Calcium 8.0 mg/dL (8.6-10.3) L 11/30/18 12:19 HDL Cholesterol 32 mg/dL (40-59) L 11/30/18 12:19 Urine Clarity Turbid (Clear) A 11/29/18 15:46 Urine pH 8.5 pH Units (5.0-8.0) H 11/29/18 15:46 Urine Protein 30 mg/dL (Neg-Trace) H 11/29/18 15:46 Ur Squamous Epith Cells Many per lpf (None-Few) H 11/29/18 15:46 Urine Bacteria Moderate per hpf (None-Few) H 11/29/18 15:46 Ur Culture Indicated? YES (NO) A 11/29/18 15:46 H & H 11/30/18 Range/Units 05:25 Hgb 13.2 D (12.9-16.9) g/dL Hct 38.9 (37.5-50.1) % All other labs normal. Consult Discharge Plan - Plan Referrals: Shaq Tompkins [Resident] - 12/07/18 3:00 pm (Please arrive 30 minutes early to fill out paperwork. Please bring your photo ID, insurance card and any medications you are on. If you need to cancel, please give a 24 hour notice. Thank you) Prescriptions: Sucralfate [Carafate] 1 gm PO TID 14 Days #420 mls
[2018-11-30] MEDS: Sucralfate 1 GM TABLET PO SCH (16:11)
[2018-11-30] MEDS: levoFLOXacin 750 MG/150 ML 750 MG/150 ML BAG IVPB SCH (18:45)
[2018-11-30] MEDS ORDERED: Acetaminophen 325 MG TABLET PO SCH (19:00)
[2018-11-30] MEDS ORDERED: Morphine Sulfate 2 MG/ML SYRINGE IVP ONE (20:12)
--- NOTE | 2018-11-30 21:53 | Event Note ---
Date of Encounter: 11/30/18 Time of Encounter: 21:45 Patient threatened to leave AMA and thus was called. On arrival to the room patient was heading outside. Discussed plan of care with patient. Patient reported continued right finger pain that is sharp rated 10/10. Patient was in tears, and visualizatin showed dressing in place with no crepitus or light palpation distal to the lesion. There was no fever, chill, chest winn , or SOB. allergies include tramadol. Patient has been receiving SL oxycodone in the hospital with reported zero pain relief. Switched to morphine IV 2mg for breakthrough pain and oral scheduled hydrocodone/acetaminophen. indetail discussion of risks, complication of leaving AMA, medications and clinical cou rse. Patient expectations and treatment plan was discussed to and the Patient was agreeable to stay.
[2018-11-30] MEDS: *HR* HYDROcodone/Acet 10/325 mg TABLET PO SCH (22:55)
[2018-12-01] MEDS: Morphine Sulfate 2 MG/ML SYRINGE IVP PRN ×3 (00:16→08:21)
[2018-12-01] MEDS: MetroNIDAZOLE 500 MG/100 ML 500 MG/100 ML BAG IVPB SCH ×3 (00:17→20:33)
[2018-12-01] MEDS: Nicotine 21 MG PATCH.TD24 TD SCH (04:10)
[2018-12-01] MEDS: *HR* HYDROcodone/Acet 10/325 mg TABLET PO SCH (04:10)
[2018-12-01 05:58] LABS: Basophils # 0.1 K/mcL (0.0-0.2); Basophils % 0.6 %; Eosinophils # 0.2 K/mcL (0.0-0.6); Hematocrit 37.3 % (37.5-50.1); Hemoglobin 12.6 g/dL (12.9-16.9); Immature Granulocytes % 0.2 % (0-4); Lymphocytes % 35.7 %; Mean Corpuscular HGB Conc 33.8 g/dL (31.6-35.5); Mean Corpuscular Hemoglobin 32.6 pg (28.0-33.3); Mean Corpuscular Volume 96.4 fL (83.0-100.0); Mean Platelet Volume 10.7 fL (9.4-12.4); Monocytes # 0.6 K/mcL (0.0-1.3); Monocytes % 6.9 %; Neutrophils # 4.6 K/mcL (1.6-8.9); Platelet Count 252 K/mcL (140-400); Red Blood Count 3.87 M/mcL (4.19-5.50); Red Cell Distribution Width 13.1 % (11.5-14.5); Segmented Neutrophils % 54.6 %; White Blood Count 8.4 K/mcL (4.3-11.1)
[2018-12-01 06:16] LABS: BUN/Creatinine Ratio 19 (6-26); Blood Urea Nitrogen 13 mg/dL (6-20); Calcium 8.3 mg/dL (8.6-10.3); Carbon Dioxide 28 mEq/L (23-29); Chloride 106 mEq/L (98-107); Glucose 90 mg/dL (70-105); Osmolality,Calculated 288 (280-300); Potassium 3.7 mEq/L (3.5-5.1); Sodium 139 mEq/L (136-145); eGFR For African Americans > 60 (> 60); eGFR For Non-African Americans > 60 (> 60)
--- NOTE | 2018-12-01 07:46 | Orthopedics Progress Note ---
Date of Encounter: 12/01/18 Time of Encounter: 07:43 - Assessment and Plan (1) Finger infection Current Visit: Yes Status: Acute Subjective Interval history: S: Expected pain to the right long fingertip Pain has improved compared to before drainage O: Afebrile on the vital signs are stable Right long fingertip evaluated Swelling has significantly improved; no purulence or foul-smelling material Packing pulled from wound. No drainage. Nail bed appears healthy; neurovascularly intact Gram stain appears polymicrobial; cultures pending A: Right long finger nailbed infection P: Right long finger is improving It would be reasonable to observe as an outpatient on oral antibiotics; recommended broad-spectrum presumptive oral antibiotic Follow up with me in the office early next week for clinical reevaluation or sooner if needed. I discussed daily local wound care with the patient. He will take the dressing down once a day, soak the right long fingertip and warm, soapy water and redress. Objective Vital signs: Vital Signs Temp Pulse Resp BP Pulse Ox 12/01/18 07:05 97.7 F 54 14 118/77 100 12/01/18 04:34 97.9 F 62 14 144/90 100 11/30/18 23:02 98.0 F 59 14 117/72 98 11/30/18 20:17 98.5 F 95 14 165/92 98 11/30/18 14:14 97.9 F 52 15 113/68 99 11/30/18 10:49 98.0 F 50 15 121/73 100 11/30/18 08:34 97.6 F 55 16 122/78 100 Intake and Output 11/30/18 11/30/18 12/01/18 15:59 23:59 07:59 Intake Total 440 / 1940 400 / 1940 710 / 710 Output Total 200 / 200 Balance 240 / 1740 400 / 1740 710 / 710 Intake: IV Fluids 200 / 1700 400 / 1700 350 / 350 Protonix 40 MG In 0.9 % Sodium 200 / 200 Chloride (Mini-Bag +) 100 ML @ 20 mls/hr IVC .Q5H [facility] Rx#: [id number] Flagyl Premix 500 MG/100 ML 500 100 / 100 mg In 100 ml @ 100 mls/hr IVPB Q8HR [facility] Rx#:[id number] Vancocin 1,000 MG In 0.9 % 250 / 250 250 / 250 Sodium Chloride 250 ML @ 167 mls/hr IVPB Q12H [facility] Rx#: [id number] Levaquin Premix 750mg/150 mL 150 / 150 750 mg In 150 ml @ 100 mls/hr IVPB DAILY [facility] Rx#:[id number] Oral 240 / 240 360 / 360 Output: Urine 200 / 200 Other: Meal Lunch Dinner Percent of Meal Consumed 25% 60% # Voids 1 Blood Glucose* 88 - Labs CBC & BMP: 12/01/18 05:39 12/01/18 05:39 Labs: Abnormal lab results WBC 12.9 K/mcL (4.3-11.1) H 11/29/18 13:21 RBC 3.87 M/mcL (4.19-5.50) L 12/01/18 05:39 Hgb 12.6 g/dL (12.9-16.9) L 12/01/18 05:39 Hct 37.3 % (37.5-50.1) L 12/01/18 05:39 Neutrophils # 10.7 K/mcL (1.6-8.9) H 11/29/18 13:21 Potassium 3.2 mEq/L (3.5-5.1) L 11/30/18 12:19 Carbon Dioxide 31 mEq/L (23-29) H 11/29/18 13:21 Creatinine 0.67 mg/dL (0.70-1.30) L 11/29/18 13:21 BUN/Creatinine Ratio 27 (6-26) H 11/30/18 12:19 Glucose 122 mg/dL (70-105) H 11/30/18 12:19 Calcium 8.3 mg/dL (8.6-10.3) L 12/01/18 05:39 HDL Cholesterol 32 mg/dL (40-59) L 11/30/18 12:19 Urine Clarity Turbid (Clear) A 11/29/18 15:46 Urine pH 8.5 pH Units (5.0-8.0) H 11/29/18 15:46 Urine Protein 30 mg/dL (Neg-Trace) H 11/29/18 15:46 Ur Squamous Epith Cells Many per lpf (None-Few) H 11/29/18 15:46 Urine Bacteria Moderate per hpf (None-Few) H 11/29/18 15:46 Ur Culture Indicated? YES (NO) A 11/29/18 15:46 Consult Discharge Plan - Plan Referrals: Shaq Tompkins [Resident] - 12/07/18 3:00 pm (Please arrive 30 minutes early to fill out paperwork. Please bring your photo ID, insurance card and any medications you are on. If you need to cancel, please give a 24 hour notice. Thank you) Prescriptions: Sucralfate [Carafate] 1 gm PO TID 14 Days #420 mls
[2018-12-01] MEDS: Sucralfate 1 GM TABLET PO SCH ×4 (08:23→22:27)
[2018-12-01] MEDS ORDERED: Acetaminophen 325 MG TABLET PO PRN (08:33)
[2018-12-01] MEDS ORDERED: *HR* OxyCODONE/APAP 5/325 TABLET PO PRN (08:34)
[2018-12-01] MEDS ORDERED: *HR* HYDROcodone/Acet 10/325 mg TABLET PO PRN (08:34)
[2018-12-01] MEDS: levoFLOXacin 750 MG/150 ML 750 MG/150 ML BAG IVPB SCH (09:26)
[2018-12-01] MEDS ORDERED: Aminoglycoside Consult 1 EACH MC ONE (10:41)
--- NOTE | 2018-12-01 14:28 | Internal Med Progress Note ---
<Kyrstle Ayala - Last Filed: 12/01/18 15:52> Hospitalist Progress Note - Encounter Date of Encounter: 12/01/18 - Exam Vitals: Temp Pulse Resp BP Pulse Ox 97.7 F 86 14 115/75 99 12/01/18 14:25 12/01/18 14:25 12/01/18 14:25 12/01/18 14:25 12/01/18 14:25 - Assessment and Plan (1) Abdominal pain Current Visit: Yes Status: Resolved (2) Hematemesis Current Visit: Yes Status: Resolved (3) DVT prophylaxis Current Visit: Yes Status: Acute (4) Nicotine dependence Current Visit: Yes Status: Chronic (5) Use of energy drinks Current Visit: Yes Status: Acute - Time Spent with Patient Total time spent is greater than 50% in coordination of care (as documented) at patient's floor/unit and/or counseling patient: Internal Medicine: Result - Labs CBC & Chem 7: 12/01/18 05:39 12/01/18 05:39 Labs: Short CBC 12/01/18 Range/Units 05:39 WBC 8.4 (4.3-11.1) K/mcL Hgb 12.6 L (12.9-16.9) g/dL Hct 37.3 L (37.5-50.1) % Plt Count 252 (140-400) K/mcL Neutrophils # 4.6 (1.6-8.9) K/mcL BMP 12/01/18 05:39 Sodium 139 Potassium 3.7 Chloride 106 Carbon Dioxide 28 BUN 13 Creatinine 0.70 Glucose 90 Calcium 8.3 L - ABG Interpretation ABG results: PT/INR, D-dimer PT 11.1 Seconds (9.4-12.1) 11/29/18 13:21 Consult Discharge Plan - Plan Referrals: Shaq Tompkins [Resident] - 12/07/18 3:00 pm (Please arrive 30 minutes early to fill out paperwork. Please bring your photo ID, insurance card and any medications you are on. If you need to cancel, please give a 24 hour notice. Thank you) Prescriptions: Sucralfate [Carafate] 1 gm PO TID 14 Days #420 mls - Attending Attestation I examined this patient and my medical decision-making was reviewed with the Resident Physician Dr Catalan. I agree with the documented findings, disposition and treatment plan as described except to the extent set forth below. Mr Buckner is being observed for hematemesis and abd pain and found to have finger infection awake, no abd pain, n/v, tolerating diet. finger pain is severe since I&D and removal of nail. denies fevers/chills gen- alert, awake,appears stated age cv- reg rate and rhythm, normal s1,s2 lungs- ctabl abd- soft, nontender , non distended, + bs msk- right third finger dressing c/d/i neuro- AAOx3 Epigastric pain 2/2 multiple gastric ulcers- bx fu with gi outpt, PPI BID + carafate, stop home nsaid Right third finger infection s/p I&D- appreciate ortho input, awaiting cxs, transition to broad oral abx and monitor for fever/leukocytosis Asx bacteruria- ucx neg further dx and plan as noted by resident hope to be able to dc to home pending cxs in am <Brendon Catalan S - Last Filed: 12/01/18 16:30> Hospitalist Progress Note - Encounter Date of Encounter: 12/01/18 Time of Encounter: 14:26 - Subjective Interval History: Mr. Buckner is doing fair. His wound packing from his I&D was removed this morning, and has resulted in excruciating pain. On my initial assessment, the patient was agitated, writhing in the bed, and talking about leaving AMA. I told him we would give him pain medication I will reassess him in 30 minutes. When I returned, patient was resting comfortably in the bed, and was much more agreeable. He does express a strong desires to return home. She denies any ongoing nausea, vomiting, diarrhea, constipation, numbness or tingling or weakness. he denies chest pain or trouble breathing. - Exam Vitals: Temp Pulse Resp BP Pulse Ox 98.0 F 59 14 115/78 100 12/01/18 10:56 12/01/18 10:56 12/01/18 10:56 12/01/18 10:56 12/01/18 10:56 Exam: Gen: Awake and alert, no acute distress, well-nourished, not well kempt Head: Normocephalic, atraumatic Eyes: EOMI, no scleral icterus ENT: Mucous membranes moist, no oropharyngeal erythema CV: S1-S2 present, regular rhythm at a rate of approximately 70, no murmurs rubs or gallops Pulm: CTAB, not tachypneic, no respiratory distress, no increased work of breathing Abd: non-rigid, non-distended, tenderness to palpation is resolved. Bowel sounds present EXT: Grossly intact motor strength in all 4 extremities, no lower extremity edema, no distal cyanosis or pallor Skin: Warm, dry, intact, no rashes or lesions noted Neuro: Cranial nerves II-XII grossly intact, no focal nurologic deficits Psych: normal mood and affect, Answers questions with intact judgement, appropriate insight, and linear thought Upper extremity: middle finger in R hand wrapped in clean, dry gauze with no apparent drainage or bleeding. Of note the pointer finger on the same hand appears shortened secondary to prior trauma, patient appears to have multiple healed fractures and wounds from trauma to the hands with residual deformity secondary to his occupation - Assessment and Plan (1) Gastric ulcer Current Visit: Yes Status: Acute Assessment and Plan: Patient is status post EGD which diagnosed multiple gastric ulcers, pathology still pending * IV PPI switched to PO omeprazole 20mg BID * continue carafate TID with meals * Dose antibiotics at times other than when carafate given * no NSAIDs (2) Closed fracture of finger of right hand Current Visit: No Status: Inactive Assessment and Plan: Patient's pain significantly increased following removal of the wound packing. Pain control is better now with oral narcotics Recommendation of orthopedic surgery is broad-spectrum oral antibiotics and outpatient follow-up * In consultation with inpatient pharmacist, we will start oral doxycycline and oral Levaquin, * give at different time than Carafate (3) Abdominal pain Current Visit: Yes Status: Resolved Assessment and Plan: resolving with PPI and carafate. no nausea/vomiting/diarrhea/constipation/black or tarry stools. continue treatment for ulcers. (4) Hematemesis Current Visit: Yes Status: Resolved Assessment and Plan: resolved with PPI and carafate, patient tolerating diet well (5) Nicotine dependence Current Visit: Yes Status: Chronic Assessment and Plan: continue nicotine patches assess desire to receive smoking cessation assitance before discharge (6) Goals of care, counseling/discussion Current Visit: Yes Status: Acute Assessment and Plan: As noted yesterday, my assessment of the patient was that he is DNR/DNI may have been a decision made due to lack of complete information on end-of-life care options Patient was seen by social work today * He made his significant other 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 * He remains DNR CC DNI at this time DVT Prophylaxis: sqh - Summary of Assessment and Plan Summary of Assessment and Plan: PPI and Carafate for ulcers Broad-spectrum by mouth antibiotics for drained finger infection Follow-up outpatient with Ortho Likely discharged tomorrow - Time Spent with Patient Total time spent is greater than 50% in coordination of care (as documented) at patient's floor/unit and/or counseling patient: Internal Medicine: Result - Labs CBC & Chem 7: 12/01/18 05:39 12/01/18 05:39 Labs: Short CBC 12/01/18 Range/Units 05:39 WBC 8.4 (4.3-11.1) K/mcL Hgb 12.6 L (12.9-16.9) g/dL Hct 37.3 L (37.5-50.1) % Plt Count 252 (140-400) K/mcL Neutrophils # 4.6 (1.6-8.9) K/mcL BMP 12/01/18 05:39 Sodium 139 Potassium 3.7 Chloride 106 Carbon Dioxide 28 BUN 13 Creatinine 0.70 Glucose 90 Calcium 8.3 L - ABG Interpretation ABG results: PT/INR, D-dimer PT 11.1 Seconds (9.4-12.1) 11/29/18 13:21 - Impressions Impressions Finger X-Ray 11/30/18 14:56 IMPRESSION: Soft tissue swelling of the distal 3rd digit without acute osseous abnormality. D/ / Noy Segura MD / Noy Segura MD Interpreting Provider: Noy Segura MD <Krystle Ayala M - Last Filed: 12/01/18 15:52> (1) Abdominal pain Qualifiers: Abdominal location: left upper quadrant Qualified Code(s): R10.12 - Left upper quadrant pain (2) Hematemesis Qualifiers: Nausea presence: with nausea Qualified Code(s): K92.0 - Hematemesis (4) Nicotine dependence Qualifiers: Nicotine product type: cigarettes Substance use status: uncomplicated Qualified Code(s): F17.210 - Nicotine dependence, cigarettes, uncomplicated <Brendon Catalan S - Last Filed: 12/01/18 16:30> (2) Closed fracture of finger of right hand Qualifiers: Encounter type: initial encounter Finger: middle finger Phalanx: distal Fracture alignment: nondisplaced Qualified Code(s): S62.662A - Nondisplaced fracture of distal phalanx of right middle finger, initial encounter for closed fracture (3) Abdominal pain Qualifiers: Abdominal location: left upper quadrant Qualified Code(s): R10.12 - Left upper quadrant pain (4) Hematemesis Qualifiers: Nausea presence: with nausea Qualified Code(s): K92.0 - Hematemesis (5) Nicotine dependence Qualifiers: Nicotine product type: cigarettes Substance use status: uncomplicated Qualified Code(s): F17.210 - Nicotine dependence, cigarettes, uncomplicated
[2018-12-01] MEDS ORDERED: Morphine Sulfate 2 MG/ML SYRINGE IVP PRN (18:02)
[2018-12-01] MEDS: Doxycycline 100 MG CAPSULE PO SCH (18:15)
[2018-12-01] MEDS: *HR* OxyCODONE/APAP 7.5/325 TABLET PO PRN (23:40)
[2018-12-02] MEDS: Nicotine 21 MG PATCH.TD24 TD SCH (04:22)
[2018-12-02 05:41] LABS: Basophils # 0.1 K/mcL (0.0-0.2); Basophils % 1.1 %; Eosinophils # 0.1 K/mcL (0.0-0.6); Eosinophils % 2.1 %; Hematocrit 39.4 % (37.5-50.1); Hemoglobin 13.4 g/dL (12.9-16.9); Immature Granulocytes % 0.2 % (0-4); Lymphocytes # 2.4 K/mcL (0.6-4.6); Lymphocytes % 36.9 %; Mean Corpuscular Hemoglobin 32.4 pg (28.0-33.3); Mean Corpuscular Volume 95.4 fL (83.0-100.0); Mean Platelet Volume 10.8 fL (9.4-12.4); Monocytes # 0.5 K/mcL (0.0-1.3); Neutrophils # 3.4 K/mcL (1.6-8.9); Platelet Count 268 K/mcL (140-400); Red Blood Count 4.13 M/mcL (4.19-5.50); Segmented Neutrophils % 51.7 %; White Blood Count 6.6 K/mcL (4.3-11.1)
[2018-12-02 06:01] LABS: BUN/Creatinine Ratio 20 (6-26); Blood Urea Nitrogen 15 mg/dL (6-20); Carbon Dioxide 27 mEq/L (23-29); Chloride 103 mEq/L (98-107); Glucose 110 mg/dL (70-105); Osmolality,Calculated 285 (280-300); Potassium 3.7 mEq/L (3.5-5.1); Sodium 137 mEq/L (136-145); eGFR For African Americans > 60 (> 60); eGFR For Non-African Americans > 60 (> 60)
[2018-12-02] MEDS: *HR* OxyCODONE/APAP 7.5/325 TABLET PO PRN (06:04)
[2018-12-02] MEDS: Doxycycline 100 MG CAPSULE PO SCH (06:04)
[2018-12-02 08:26] VITALS: BP 108/70
--- NOTE | 2018-12-02 08:36 | Discharge Summary ---
<Krystle Ayala - Last Filed: 12/02/18 09:57> Orders not resulted at time of discharge: Pending orders 11/30/18 15:45 Culture,Anaerobic [] Routine Culture,Wound,with Gram Stain [] Routine Date of Encounter: 12/02/18 - Discharge Diagnosis (1) Abdominal pain Status: Resolved Qualifiers: Abdominal location: left upper quadrant Qualified Code(s): R10.12 - Left upper quadrant pain (2) Hematemesis Status: Resolved Qualifiers: Nausea presence: with nausea Qualified Code(s): K92.0 - Hematemesis (3) DVT prophylaxis Status: Acute (4) Nicotine dependence Status: Chronic Qualifiers: Nicotine product type: cigarettes Substance use status: uncomplicated Qualified Code(s): F17.210 - Nicotine dependence, cigarettes, uncomplicated (5) Use of energy drinks Status: Acute Hospital course: Mr. Buckner is a 43 year old male - Time Spent with Patient Total time spent providing and/or coordinating discharge services: - Discharge Medications Prescriptions: New Sucralfate [Carafate] 1 gm PO 1130,1630,2200 60 Days #180 tablet Doxycycline 100 mg PO Q12H 10 Days #20 capsule levoFLOXacin [Levaquin] 750 mg PO DAILY 10 Days #10 tablet OxyCODONE/APAP 7.5/325 [Percocet 7.5/325 MG] 1 each PO Q6HR PRN 5 Days #20 tablet PRN Reason: Severe Pain Omeprazole [PriLOSEC] 40 mg PO BIDAC 30 Days #60 capsule. Acetaminophen [Tylenol] 650 mg PO Q6HR PRN 10 Days #80 tablet PRN Reason: Mild To Moderate Pain Discontinued Ibuprofen [Motrin] 600 mg PO Q8HR PRN #20 tab PRN Reason: Pain Home Medications: Acetaminophen [Tylenol] 650 mg PO Q6HR PRN 10 Days #80 tablet 12/02/18 [Rx] Doxycycline 100 mg PO Q12H 10 Days #20 capsule 12/02/18 [Rx] Omeprazole [PriLOSEC] 40 mg PO BIDAC 30 Days #60 capsule. 12/02/18 [Rx] OxyCODONE/APAP 7.5/325 [Percocet 7.5/325 MG] 1 each PO Q6HR PRN 5 Days #20 tablet 12/02/18 [Rx] Sucralfate [Carafate] 1 gm PO 1130,1630,2200 60 Days #180 tablet 12/02/18 [Rx] levoFLOXacin [Levaquin] 750 mg PO DAILY 10 Days #10 tablet 12/02/18 [Rx] Allergies/Adverse Reactions: Allergy/AdvReac Type Severity Reaction Status Date / Time Penicillins Allergy Swelling Verified 11/29/18 21:41 of Lip/Tongue/Throat tramadol [From Ultram] AdvReac Chest Pain Verified 11/29/18 21:41 Date of admission: 11/29/18 19:47 Primary care physician: PCP NONE Consults: 11/29/18 22:42 Consult to Gastroenterology [CONS] Routine Consulting Provider: [facility] Reason for Consult: Hematemesis Call Completed: No 11/29/18 23:03 Consult to Nutrition [CONS] Routine Comment: Consulting Provider: NUTRITION Reason for Dietary Consult: MST Score 11/30/18 09:47 Consult to Orthopedic Surgery [CONS] Routine Consulting Provider: [facility] Reason for Consult: right third digit edema and concern for infection Time Notified: 09:49 Call Completed: Yes 11/30/18 18:04 Consult to Manager Portable [CONS] Routine Reason for SW Consult: I had an extensive discussion today about the patient's DNR. He had relatively poor understanding of what this meant, and I emphasized that his age and relatively good health gave him a much more favorable prognosis in a code/intubation situation than many of our elderly patients. He was unaware of living [place] and advanced directives, and stated he would be interested in talking to someone about advanced directives. Thank you for helping with this patient's care!! your assistance is greatly appreciated! - Constitutional Vitals: Temp Pulse Resp BP Pulse Ox 98.2 F 58 16 108/70 99 12/02/18 08:25 12/02/18 08:25 12/02/18 08:25 12/02/18 08:25 12/02/18 08:25 - Patient Status Disposition: Home, Self-Care Condition: Good - Discharge Instructions Instructions: Acute Wound Care (DC), Peptic Ulcer (DC) Follow Up With: Erickson Lucero MD [Partnered Physician] - Kenji Gutierrez MD [Partnered Physician] - Shaq Tompkins [Resident] - 12/07/18 3:00 pm (Please arrive 30 minutes early to fill out paperwork. Please bring your photo ID, insurance card and any medications you are on. If you need to cancel, please give a 24 hour notice. Thank you) Additional Instructions: Dr Lucero of Ortho Surgery discussed daily local wound care with you. Take the dressing down once a day, soak the right long fingertip and warm, soapy water and redress. You will need to see him in the office early next week as he discussed. YOU HAVE BEEN PRESCRIBED TWO ANTIBIOTICS THAT YOU NEED TO TAKE NOTED. DO NOT MISS DOSES Follow up with the residency clinic/PCP as scheduled You also require follow up with Dr Gutierrez of GI to discuss your ulcers further and go over stomach biopsies as we discussed. YOU HAVE BEEN PRESCRIBED TWO NEW M EDICATIONS TO PROTECT THE LINING OF YOUR STOMACH AND HELP IT HEAL WE DISCUSSED. TAKE THEM NOTED NO IBUPROFEN, ALEVE OR MOTRIN. THE ONLY THING WE RECOMMEND FOR PAIN NOW AND IN THE FUTURE IS TYLENOL (ACETAMINOPHEN) AVOID ALCOHOL IF SYMPTOMS RETURN CONTACT THE DOCTOR IMMEDIATELY OR GO TO THE NEAREST ER symptoms may include severe abdominal pain, vomiting blood, fevers/chills, but also include any new symptoms you find concerning. - Attending Attestation I examined this patient and my medical decision-making was reviewed with the Resident Physician Dr Catalan. I agree with the documented findings, disposition and treatment plan as described except to the extent set forth below. Mr Buckner was observed for hematemesis and abd pain and found to have finger infection awake, feeling very well. no pain in finger or abd pain. tolerating diet. no n/v. discussed detailed dc plan and answered all questions. He changed own fin ermelinda dressing last night gen- alert, awake,appears stated age cv- reg rate and rhythm, normal s1,s2 lungs- ctabl abd- soft, nontender + bs msk- right third finger dressing c/d/i neuro- AAOx3 Epigastric pain 2/2 multiple gastric ulcers resolved- bx fu with gi outpt, PPI BID + carafate, stop home nsaid Right third finger infection s/p I&D- appreciate ortho input, transitioned to broad oral abx and tolerated, cxs remain pending + gnr x2 species, he will follow up with Dr Lucero in the next week, abx adjustments as needed further dx and plan as noted by resident time spent on dc 40 min <Brendon Catalan S - Last Filed: 12/02/18 10:38> - NOTES TO OUTPATIENT PROVIDER Notes to Outpatient Provider: Mr Buckner was seen at our facility for hematemesis. EGD found numerous gastric ulcers. The patient's history revealed several days of very heavy ibuprofen use with little PO intake other than energy drinks, as he was experiencing severe finger pain while finishing a contract. His finger was known to be fractured, and was found to have a felon and peronychial abscess, both of which were drained, and he needs follow up with orthopedic surgery. The ulcers, which likely resulted from his ibuprofen use, have been hemostatic since initiation of a PPI and carafate. he must avoid all NSAIDs and must follow up with GI. He is being discharged on omeprazole 20mg BID and carafate 1G TID. He has also been prescribed percocet 7.5/325 Q6Hr PRN for residual severe pain, and Tylenol 650mg Q6hr for breakthrough or moderate pain. Preliminary cultures of his finger wounds revealed growth of gram negative rods, and he is being discharged with 100mg doxycycline BID and 750mg Levofloxacin TID to be taked at different times than his carafate for 10 days each. final results of antibiotic sensitivities are still pending. Orders not resulted at time of discharge: Pending orders 11/30/18 08:56 Surgical Pathology [PTH] Routine 11/30/18 15:45 Culture,Anaerobic [RM] Routine Culture,Wound,with Gram Stain [RM] Routine Date of Encounter: 12/02/18 Time of Encounter: 08:30 - Discharge Diagnosis (1) Gastric ulcer Priority: Primary Status: Acute Assessment and Plan: CC was hematemesis, which resolved with PPI and carafate EGD revealed multiple gastric ulcers, biopsies were taken history revealed use of 8-10 ibuprofen at a time several times a day, especially at night with little other PO intake * patient aware he needs to follow up with GI to monitor treatment of his ulcers * Continue PPI 20mg BID * Continue Carafate 1G TID (2) Closed fracture of finger of right hand Priority: Secondary Status: Inactive Assessment and Plan: Fracture of the right middle finger was the inciting event in his recent problems. He broke the finger while at work, and has obvious evidence of repeated hand trauma on exam. The finger subsequently developed concurrent felon and peronychial abscess, wheich were drained here. * pt prescribed percocet 7.5/325 Q6H for pain * Pt prescribed APAP 650mg Q6H for breakthrough pain * Pt will follow up with Ortho for further evaluation and possible treatment of his finger wounds and fracture Qualifiers: Encounter type: initial encounter Finger: middle finger Phalanx: distal Fracture alignment: nondisplaced Qualified Code(s): S62.662A - Nondisplaced fracture of distal phalanx of right middle finger, initial encounter for closed fracture (3) Abdominal pain Priority: Secondary Status: Resolved Assessment and Plan: pain resolved after 24 hours on PPI and carafate. pt has strict return precautions that include recurrence of severe abdominal pain or hematemesis Qualifiers: Abdominal location: left upper quadrant Qualified Code(s): R10.12 - Left upper quadrant pain (4) Hematemesis Priority: Secondary Status: Resolved Assessment and Plan: Hematemesis resolved with administration of PPI and Carafate. patient has strict retur nprecautions which include recurrence of abdominal pain or hematemesis. Qualifiers: Nausea presence: with nausea Qualified Code(s): K92.0 - Hematemesis (5) Nicotine dependence Priority: Secondary Status: Chronic Assessment and Plan: discussed quitting tobacco and marijuana, pt is not interested at this time in assistance quitting smoking. Qualifiers: Nicotine product type: cigarettes Substance use status: uncomplicated Qualified Code(s): F17.210 - Nicotine dependence, cigarettes, uncomplicated (6) Goals of care, counseling/discussion Priority: Secondary Status: Acute Assessment and Plan: Pt met with social work yesterday and made significant other POA Pt remains DNR/DNI * future discussion of his current DNR/DNI may be warranted in the outpatient setting (7) Felon of finger of right hand Priority: Secondary Status: Acute Assessment and Plan: felon with concomitant peronychial abscess drained on 11/30 packing removed 12/01 pt still reports significant pain, which is well controlled with percocet 7.5/325 * discharge with PO doxycycline and levofloxacin x 10 days. Hospital course: Mr. Buckner is a 43 year old male who presented to our ED with hematemesis. He was found to have numerous gastric ulcers on EGD, and was started on PPI and Carafate with resolution of his hematemesis. History revealed extensive ibuprofen use secondary to right middle finger pain. The right middle finger was oted to be markedly edematous and tender, and a peronicheal abscess and felon were drained by Ortho, initial cultures show gram negative rods, final culture results, including sensitivities are pending. the patient's pain control was inadequate at times, leading to agitation, but he became reasonable after his pain was once again under control. I discussed cessation of smoking cigarettes and marijuana with the patient, and he is not currently interested in information about smoking cessation. Mr Buckner is being discharged with follow up appointment already set at our residency clinic for primary care, he is aware he needs to follow up with ortho and GI. Discharge discussed with: patient Time spent discussing smoking cessation with patient: 3 to 10 minutes - Time Spent with Patient Total time spent providing and/or coordinating discharge services: Date of admission: 11/29/18 19:47 Primary care physician: PCP NONE Consults: 11/29/18 22:42 Consult to Gastroenterology [CONS] Routine Consulting Provider: [facility] Reason for Consult: Hematemesis Call Completed: No 11/29/18 23:03 Consult to Nutrition [CONS] Routine Comment: Consulting Provider: NUTRITION Reason for Dietary Consult: MST Score 11/30/18 09:47 Consult to Orthopedic Surgery [CONS] Routine Consulting Provider: [facility] Reason for Consult: right third digit edema and concern for infection Time Notified: 09:49 Call Completed: Yes 11/30/18 18:04 Consult to Manager Portable [CONS] Routine Reason for SW Consult: I had an extensive discussion today about the patient's DNR. He had relatively poor understanding of what this meant, and I emphasized that his age and relatively good health gave him a much more favorable prognosis in a code/intubation situation than many of our elderly patients. He was unaware of living [place] and advanced directives, and stated he would be interested in talking to someone about advanced directives. Thank you for helping with this patient's care!! your assistance is greatly appreciated! Discharging clinician: Brendon Catalan Anticipated date of discharge: 12/02/18 - Constitutional Vitals: Temp Pulse Resp BP Pulse Ox 98.2 F 58 16 108/70 99 12/02/18 08:25 09/06/19 08:25 12/02/18 08:25 12/02/18 08:25 12/02/18 08:25 General appearance: Present: cooperative, mild distress, A&O X 3, answers questions appropriately. Absent: pleasant Exam: Gen: Awake and alert, no acute distress, Head: Normocephalic, atraumatic Eyes: EOMI, no scleral icterus ENT: Mucous membranes moist, CV: RRR, no murmurs rubs or gallops Pulm: CTAB, not tachypneic, no respiratory distress, no increased work of breathing Abd: non-rigid, non-distended, tenderness to palpation is resolved. Bowel sounds present EXT: Grossly intact motor strength in all 4 extremities, no lower extremity edema, no distal cyanosis or pallor Skin: Warm, dry, intact, no rashes or lesions noted Neuro: Cranial nerves II-XII grossly intact, no focal nurologic deficits Psych: normal mood and affect, Answers questions with intact judgement, appropriate insight, and linear thought Upper extremity: middle finger in R hand wrapped in clean, dry gauze with no apparent drainage or bleeding. - Patient Status Functional capacity at discharge: independent ambulation Overall status at discharge: patient is progressing back to baseline - Diet and Activity Activity: resume usual activities as tolerated Diet: advance to your usual diet
[2018-12-02] MEDS ORDERED: levoFLOXacin 750 MG TABLET PO SCH (09:00)
== END 2018-12-02 10:42 | disposition home or self-care (01) ==
LOC: 3ANU 12:58 → EMEROOARM 12:58 → SUATTDRO 19:47 → 3ANU 20:38
PROVIDERS: ADMIT Family Medicine; ATTEND Internal Medicine